=== PATIENT | male | born 1955 | race American Indian/Alaskan Native ===

== ENCOUNTER 2019-07-27 18:49 | Inpatient (IN) | payer OTHER ==
--- NOTE | 2019-07-27 19:28 | Emergency Department Report ---
Chief Complaint: Upper Respiratory Infection Stated Complaint: COUGHING BLOOD - HPI History of Present Illness: 63yo BM states that he has been coughing for a month with blood appearing at times for over a month. - Exam Vital Signs: Vital Signs 07/27/19 18:53 Temperature 97.5 F L Pulse Rate 133 H Respiratory 16 Rate Blood Pressure 152/104 O2 Sat by Pulse 89 Oximetry MSE screening note: Focused history and physical exam performed. Due to findings the following was ordered: ED Disposition for MSE Condition: Stable
[2019-07-27 19:47] LABS: Basophils % (Auto) 0.5 % (0.0-1.8); Eosinophils % (Auto) 0.1 % (0.0-4.3); Hematocrit 50.1 % (35.5-45.6); Hemoglobin 17.1 gm/dl (11.8-15.2); Lymphocytes # (Auto) 2.4 K/mm3 (1.2-5.4); Lymphocytes % (Auto) 28.9 % (13.4-35.0); Mean Corpuscular HGB Conc 34 % (32-34); Mean Corpuscular Volume 90 fl (84-94); Monocytes # (Auto) 0.8 K/mm3 (0.0-0.8); Monocytes % (Auto) 9.8 % (0.0-7.3); Platelet Count 225 K/mm3 (140-440); Red Blood Count 5.57 M/mm3 (3.65-5.03); Red Cell Distribution Width 13.3 % (13.2-15.2)
[2019-07-27 20:06] LABS: Alanine Aminotransferase 102 units/L (7-56); Albumin 4.5 g/dL (3.9-5); BUN/Creatinine Ratio 14; Blood Urea Nitrogen 14 mg/dL (9-20); Calcium 9.6 mg/dL (8.4-10.2); Hemolysis Index 9
--- NOTE | 2019-07-27 20:25 | XRay Report ---
CHEST 2 VIEWS, 07/27/2019 7:44 PM INDICATION: Cough. Hemoptysis. COMPARISON: None FINDINGS: Support devices: None Heart: The cardiac silhouette scratch that the heart is normal in size Lungs/pleura: There is a focal irregular density within the left upper lobe measuring approximately 6 x 2.5 cm. The right lung appears grossly clear. Diffuse mild bilateral interstitial thickening is n oted. Additional findings: Evaluation of bony structures demonstrates no definitive evidence of acute bony abnormality. IMPRESSION: 1. Irregular left upper lobe density as described. Recommend better characterization with CT of the c hest. Signer Name: Anum Donnelly MD Signed: 07/27/2019 8:21 PM Workstation Name: [id number]
--- NOTE | 2019-07-27 22:00 | Emergency Department Report ---
- General Chief Complaint: Upper Respiratory Infection Stated Complaint: COUGHING BLOOD Time Seen by Provider: 07/27/19 21:07 Source: patient Mode of arrival: Ambulatory Limitations: No Limitations - History of Present Illness Initial Comments: 63-year-old male with no significant past medical history presents to the hospital complaining of hemoptysis 1 month. Patient states initially he had a cough productive of green sputum but now it is clear with drops of blood for the past month. Decreased appetite reported. Patient denies fever, weight loss, or chills. Patient has a history of smoking but quit 4 years ago. He hasn't seen a doctor in the last 30-40 years. He denies chest pain, recent travel, history of PE/DVT. Pt denies drug use or daily etoh intake. - Related Data Allergies Allergy/AdvReac Type Severity Reaction Status Date / Time No Known Allergies Allergy Unverified 07/27/19 19:28 ED Review of Systems ROS: Stated complaint: COUGHING BLOOD Other details as noted in HPI Comment: All other systems reviewed and negative ED Past Medical Hx - Past Medical History Previous Medical History?: No - Surgical History Past Surgical History?: No - Social History Smoking Status: Former Smoker Substance Use Type: None ED Physical Exam - General Limitations: No Limitations - Other Other exam information: General: No acute distress Head: Atraumatic Eyes: normal appearance ENT: Moist mucous membranes Neck: Normal appearance, no midline tenderness Chest: Clear to auscultation bilaterally CV: Regular rate and rhythm Abdomen: Soft, normal bowel sounds, nontender, nondistended, no rebound or guarding Back: Normal inspection Extremity: Normal inspection infection, full range of motion, no calf tenderness or edema Neuro: Alert O x 3, no facial asymmetry, speech clear, no gross motor sensory deficit Psych: Appropriate behavior Skin: No rash ED Course Vital Signs 07/27/19 07/27/19 07/27/19 18:53 21:20 21:45 Temperature 97.5 F L 98.3 F Pulse Rate 133 H 103 H Respiratory 16 18 18 Rate Blood Pressure 152/104 Blood Pressure 155/114 [Left] O2 Sat by Pulse 89 89 93 Oximetry 07/27/19 22:20 Temperature Pulse Rate 106 H Respiratory 20 Rate Blood Pressure Blood Pressure 149/107 [Left] O2 Sat by Pulse 94 Oximetry ED Medical Decision Making - Lab Data Result diagrams: 07/27/19 19:32 07/27/19 19:32 Lab Results 07/27/19 07/27/19 Range/Units 19:32 19:32 WBC 8.2 (4.5-11.0) K/mm3 RBC 5.57 H (3.65-5.03) M/mm3 Hgb 17.1 H (11.8-15.2) gm/dl Hct 50.1 H (35.5-45.6) % MCV 90 (84-94) fl MCH 31 (28-32) pg MCHC 34 (32-34) % RDW 13.3 (13.2-15.2) % Plt Count 225 (140-440) K/mm3 Lymph % (Auto) 28.9 (13.4-35.0) % Harding % (Auto) 9.8 H (0.0-7.3) % Eos % (Auto) 0.1 (0.0-4.3) % Baso % (Auto) 0.5 (0.0-1.8) % Lymph # 2.4 (1.2-5.4) K/mm3 Harding # 0.8 (0.0-0.8) K/mm3 Eos # 0.0 (0.0-0.4) K/mm3 Baso # 0.0 (0.0-0.1) K/mm3 Seg Neutrophils % 60.7 (40.0-70.0) % Seg Neutrophils # 5.0 (1.8-7.7) K/mm3 Sodium 138 (137-145) mmol/L Potassium 4.5 (3.6-5.0) mmol/L Chloride 100.5 (98-107) mmol/L Carbon Dioxide 19 L (22-30) mmol/L Anion Gap 23 mmol/L BUN 14 (9-20) mg/dL Creatinine 1.0 (0.8-1.5) mg/dL Estimated GFR > 60 ml/min BUN/Creatinine Ratio 14 % Glucose 111 H (75-100) mg/dL Calcium 9.6 (8.4-10.2) mg/dL Total Bilirubin 0.50 (0.1-1.2) mg/dL AST 114 H (5-40) units/L ALT 102 H (7-56) units/L Alkaline Phosphatase 112 (35-129) units/L Total Protein 8.0 (6.3-8.2) g/dL Albumin 4.5 (3.9-5) g/dL Albumin/Globulin Ratio 1.3 % - EKG Data -: EKG Interpreted by Me EKG shows normal: sinus rhythm, ST-T waves (no stemi) Rate: tachycardia (115) - EKG Data When compared to previous EKG there are: previous EKG unavailable - Radiology Data Radiology results: report reviewed CHEST 2 VIEWS, 07/27/2019 7:44 PM INDICATION: Cough. Hemoptysis. COMPARISON: None FINDINGS: Support devices: None Heart: The cardiac silhouette scratch that the heart is normal in size Lungs/pleura: There is a focal irregular density within the left upper lobe measuring approximately 6 x 2.5 cm. The right lung appears grossly clear. Diffuse mild bilateral interstitial thickening is noted. Additional findings: Evaluation of bony structures demonstrates no definitive evidence of acute bony abnormality. IMPRESSION: 1. Irregular left upper lobe density as described. Recommend better c haracterization with CT of the chest. - Medical Decision Making CT comfirms infiltrate in the left upper lobe or right lower lobe. Although patient does not have any tuberculosis risk factors (known incarceration, homelessness, international travel, fever, weight loss, or night sweats) he will be placed in respiratory isolation until TB can't be ruled out given that he has hemoptysis with upper lobe infiltrate. Cultures and Rocephin and azithromycin ordered. Hospitalist informed for admission. Patient also noted to be hypertensive. - Differential Diagnosis pneumonia, TB, cancer, PE Critical Care Time: No Critical care attestation.: If time is entered above; I have spent that time in minutes in the direct care of this critically ill patient, excluding procedure time. ED Disposition Clinical Impression: Pneumonia, Hemoptysis, Emphysema lung, HTN (hypertension) Disposition: OP ADMIT IP TO THIS HOSP Is pt being admited?: Yes Condition: Stable Time of Disposition: 23:14 (Dr Armendariz/hosp)
--- NOTE | 2019-07-27 22:54 | Cat Scan Report ---
CTA CHEST WITH CONTRAST INDICATION / CLINICAL INFORMATION: MAIN: lung mass, hemoptysis; 100ML OF OMNI 350. TECHNIQUE: Axial CT images were obtained through the chest after injection of 100 MLO Omnipaque 350 IV contrast. 3 plane MIP and/or 3D reconstructions were produced. All CT scans at this location are performed usi ng CT dose reduction for ALARA by means of automated exposure control. COMPARISON: Chest radiograph dated 07/27/19 FINDINGS: PULMONARY ARTERIES: No pulmonary emboli. THORACIC AORTA: No significant abnormality. HEART: No significant abnormality. CORONARY ARTERIES: No significant calcification. MEDIASTINUM / CARISSA: No significant abnormality. PLEURA: No pleural effusion. No pneumothorax. LUNGS: Patchy parenchymal densities in the left upper lobe corresponding to the radiographic abnormal ity. Additional patchy parenchymal densities in the right lower lobe. Mild diffuse bronchiectasis. Up per lobe predominant paraseptal emphysema with prominent interstitial reticular markings in the lung bases. No discrete pulmonary mass or nodule. ADDITIONAL FINDINGS: None. UPPER ABDOMEN: No acute findings. SKELETAL STRUCTURES: No significant osseous abnormality. IMPRESSION: 1. No CT evidence for pulmonary embolism. 2. Patchy left upper lobe and right lower lobe parenchymal densities which may represent infiltrate s uch as pneumonia, possibly atypical. 3. Upper lobe predominant paraseptal emphysema. 4. Lower lobe predominant interstitial lung disease. Signer Name: Katya Munoz MD Signed: 07/27/2019 10:49 PM Workstation Name: [id number]
[2019-07-27] MEDS ORDERED: cefTRIAXone/NS 1 GM/50 ML 1 GM/50 ML BAG IV ONE (23:07)
[2019-07-27] MEDS ORDERED: AZITHROMYCIN 500 MG in SODIUM CHLORIDE 0.9% 250ML 250 ML IV ONE (23:07)
[2019-07-28] MEDS ORDERED: ACETAMINOPHEN 650 MG RECT SUPP PR PRN (00:30)
[2019-07-28] MEDS ORDERED: ONDANSETRON 4 MG/2 ML INJ IV PRN (00:30)
[2019-07-28] MEDS ORDERED: ALBUTEROL 2.5 MG/3 ML NEBU IH PRN (00:30)
[2019-07-28] MEDS ORDERED: MAGNESIUM HYDROXIDE (MOM) ORAL LIQD UDC PO PRN (00:30)
[2019-07-28] MEDS ORDERED: SODIUM CHLORIDE 0.9% 1000 ML 1,000 ML IV SCH (01:00)
[2019-07-28] MEDS ORDERED: ACETAMINOPHEN 325 MG TAB PO PRN (01:33)
[2019-07-28] MEDS: SODIUM CHLORIDE 0.9% 1000 ML 1,000 ML IV SCH ×3 (01:45→22:00)
--- NOTE | 2019-07-28 05:00 | History and Physical Report ---
History of Present Illness Date of examination: 07/27/19 Date of admission: 07/28/19 01:30 Chief complaint: Cough and shortness of breath for 1 week History of present illness: 63 year old -[place] male presenting to the emergency room today complaining of cough shortness of breath for about 4 weeks. He denies any fever, no chills, no night sweats and no weight loss. Patient denies any sick contacts. Cough is productive of some greenish sputum and subsequently had some yellowish sputum with occasional tinge of blood. Patient admits to many years of tobacco smoking however he quit tobacco use about 4 years ago. Past History Past Medical History: No medical history Past Surgical History: No surgical history Social history: smoking (patient quit tobacco use about 4 years ago after smoking less than half a pack TOBACCO for about 20 years) Family history: diabetes (mother has history of diabetes mellitus) Medications and Allergies Allergies Allergy/AdvReac Type Severity Reaction Status Date / Time No Known Allergies Allergy Verified 07/27/19 23:11 Home Medications Medication Instructions Recorded Confirmed Last Taken Type No Known Home Medications [No 07/28/19 07/28/19 Unknown History Reported Home Medications] Active Meds: Active Medications Acetaminophen (Tylenol) 650 mg PO ONCE PRN PRN Reason: Fever >101 Albuterol (Proventil) 2.5 mg IH Q3HRT PRN PRN Reason: Shortness Of Breath Sodium Chloride (Nacl 0.9% 1000 Ml) 1,000 mls @ 125 mls/hr IV DIRECT TERRELL Last Admin: 07/28/19 01:45 Dose: 125 mls/hr Documented by: Ceftriaxone Sodium (Rocephin/Ns 2 Gm/100 Ml) 2 gm in 100 mls @ 200 mls/hr IV Q24HR TERRELL; Protocol Azithromycin 500 mg/ Sodium (Chloride) 250 mls @ 250 mls/hr IV Q24HR TERRELL; P rotocol Magnesium Hydroxide (Milk Of Magnesia) 30 ml PO Q4H PRN PRN Reason: Constipation Ondansetron HCl (Zofran) 4 mg IV Q8H PRN PRN Reason: Nausea And Vomiting Sodium Chloride (Sodium Chloride Flush Syringe 10 Ml) 10 ml IV BID TERRELL Last Admin: 07/28/19 01:15 Dose: 10 ml Documented by: Sodium Chloride (Sodium Chloride Flush Syringe 10 Ml) 10 ml IV PRN PRN PRN Reason: LINE FLUSH Review of Systems Respiratory: cough with sputum (cough is productive of some yellowish sputum with occasional tinge of blood), hemoptysis, shortness of breath Exam - Constitutional Vitals: Temp Pulse Resp BP Pulse Ox 99.3 F 89 20 143/103 93 07/28/19 02:38 07/28/19 02:38 07/28/19 02:38 07/28/19 02:38 07/28/19 02:38 General appearance: Present: no acute distress - EENT Eyes: Present: PERRL, EOM intact - Neck Neck: Present: supple, normal ROM - Respiratory Respiratory: bilateral: diminished, rales - Cardiovascular Rhythm: regular Heart Sounds: Present: S1 & S2 Results - Labs CBC & Chem 7: 07/27/19 19:32 07/27/19 19:32 Labs: Abnormal lab results 07/27/19 07/27/19 Range/Units 19:32 19:32 RBC 5.57 H (3.65-5.03) M/mm3 Hgb 17.1 H (11.8-15.2) gm/dl Hct 50.1 H (35.5-45.6) % Titus % (Auto) 9.8 H (0.0-7.3) % Carbon Dioxide 19 L (22-30) mmol/L Glucose 111 H (75-100) mg/dL AST 114 H (5-40) units/L ALT 102 H (7-56) units/L Assessment and Plan - Patient Problems (1) Emphysema lung Current Visit: Yes Status: Acute Plan to address problem: Patient will be placed on nebulizer treatments as needed (2) HTN (hypertension) Current Visit: Yes Status: Acute Plan to address problem: Blood pressure will be closely monitored. He does not have any known history of hypertension (3) Hemoptysis Current Visit: Yes Status: Acute Plan to address problem: We will place a consult to infectious disease to evaluate patient in the a.m. We will also rule out pulmonary tuberculosis. (4) Pneumonia Current Visit: Yes Status: Acute Qualifiers: Lung location: lower lobe of lung Plan to address problem: He has been placed on empiric IV antibiotics. Will allow with the culture results. We will keep O2 saturation greater or equal to 92%
[2019-07-28 05:26] LABS: Basophils % (Auto) 0.4 % (0.0-1.8); Eosinophils % (Auto) 0.4 % (0.0-4.3); Hematocrit 44.1 % (35.5-45.6); Hemoglobin 14.8 gm/dl (11.8-15.2); Lymphocytes # (Auto) 2.1 K/mm3 (1.2-5.4); Lymphocytes % (Auto) 37.1 % (13.4-35.0); Mean Corpuscular HGB Conc 34 % (32-34); Mean Corpuscular Volume 90 fl (84-94); Monocytes # (Auto) 0.7 K/mm3 (0.0-0.8); Monocytes % (Auto) 11.8 % (0.0-7.3); Platelet Count 190 K/mm3 (140-440); Red Cell Distribution Width 13.4 % (13.2-15.2)
[2019-07-28 05:33] LABS: INR 1.11 (0.87-1.13)
[2019-07-28 05:34] LABS: Partial Thromboplastin Time 35.8 Sec. (24.2-36.6)
[2019-07-28 05:42] LABS: BUN/Creatinine Ratio 13; Blood Urea Nitrogen 12 mg/dL (9-20); Calcium 8.8 mg/dL (8.4-10.2); Hemolysis Index 5
[2019-07-28] MEDS: cefTRIAXone/NS 2 GM/100 ML 2 GM/100 ML BAG IV SCH (10:00)
[2019-07-28] MEDS: AZITHROMYCIN 500 MG in SODIUM CHLORIDE 0.9% 250ML 250 ML IV SCH (12:13)
--- NOTE | 2019-07-28 15:15 | Event Note ---
Date: 07/28/19 Full consult to follow. Patient has no risk factors for tuberculosis and no cavitary lesions in the lungs, only emphysematous blebs. Ok to remove from airborne. He is not coughing. Gwendolyn Carrera MD [facility] M: [phone] O: [phone] F: [phone]
--- NOTE | 2019-07-28 21:20 | Consultation ---
History of Present Illness - Reason for Consult Consult date: 07/28/19 - History of Present Illness 63 yo M PMHx tobacco abuse admitted to the hospital complaining of productive cough and SOB which began about a month prior to admission. He notes that it began not very severe, but progressed over time, however he avoided coming to the hospital. More recently, prior to coming in he had a couple episodes of hemoptysis which occurred after bouts of severe coughing, He otherwise denies fevers, sweats, chills. He has not travelled internationally ever, never been in the , incarcerated, or homeless. He has no sick contacts. No other concerns. Feels considerably better since coming to hospital. Imaging personally reviewed: CTA: Patchy consolidation, significant emphysematous changes in the upper lobes. Review of systems: Bold if positive; otherwise negative GENERAL: fever, chills, weight loss, fatigue, night sweats EYES: blurry vision, eye pain HENT: headache, hearing loss, sore throat, dysphagia, sinus pain CARDIO: chest pain, palpitations, orthopnea PULM: shortness of breath, wheezing, cough, sputum, hemoptysis GI: nausea, vomiting, diarrhea, abdominal pain, blood in stool : urinary frequency, urgency, dysuria, urethral discharge MSK: joint pain, back pain, swelling SKIN: rash, redness HEME: easy bruising, bleeding Past History Past Medical History: No medical history Past Surgical History: No surgical history Social history: smoking (patient quit tobacco use about 4 years ago after smoking less than half a pack TOBACCO for about 20 years) Family history: diabetes (mother has history of diabetes mellitus) Medications and Allergies Allergies Allergy/AdvReac Type Severity Reaction Status Date / Time No Known Allergies Allergy Verified 07/27/19 23:11 Home Medications Medication Instructions Recorded Confirmed Last Taken Type No Known Home Medications [No 07/28/19 07/28/19 Unknown History Reported Home Medications] Active Meds: Active Medications Acetaminophen (Tylenol) 650 mg PO ONCE PRN PRN Reason: Fever >101 Albuterol (Proventil) 2.5 mg IH Q3HRT PRN PRN Reason: Shortness Of Breath Sodium Chloride (Nacl 0.9% 1000 Ml) 1,000 mls @ 125 mls/hr IV DIRECT TERRELL Last Admin: 07/28/19 10:05 Dose: 125 mls/hr Documented by: Ceftriaxone Sodium (Rocephin/Ns 2 Gm/100 Ml) 2 gm in 100 mls @ 200 mls/hr IV Q24HR TERRELL; Protocol Last Admin: 07/28/19 10:00 Dose: 200 mls/hr Documented by: Azithromycin 500 mg/ Sodium (Chloride) 250 mls @ 250 mls/hr IV Q24HR TERRELL; Protocol Last Admin: 07/28/19 12:13 Dose: 250 mls/hr Documented by: Magnesium Hydroxide (Milk Of Magnesia) 30 ml PO Q4H PRN PRN Reason: Constipation Ondansetron HCl (Zofran) 4 mg IV Q8H PRN PRN Reason: Nausea And Vomiting Sodium Chloride (Sodium Chloride Flush Syringe 10 Ml) 10 ml IV BID [facility] Last Admin: 07/28/19 10:00 Dose: 10 ml Documented by: Sodium Chloride (Sodium Chloride Flush Syringe 10 Ml) 10 ml IV PRN PRN PRN Reason: LINE FLUSH Physical Examination - Physical Exam Narrative exam: General Normal appearance, well developed, no acute distress Eyes - PERRLA, EOM intact ENT - Moist mucous membranes, no lymphadenopathy Neck - No noticeable or palpable swelling, redness or rash around throat or on face Lymph Nodes - No lymphadenopathy Cardiovascular - RRR no m/r/g, no JVD, no carotid bruits Lungs - Clear to auscultation, no use of accessory muscles, no crackles or wheezes. Skin - No rashes, skin warm and dry, no erythematous areas Abdomen - Normal bowel sounds, abdomen soft and nontender Extremities - No edema, cyanosis or clubbing Musculoskeletal - 5/5 strength, normal range of motion, no swollen or erythematous joints. Neurological Alert and oriented x 3, CN 2-12 grossly intact. - Constitutional Vitals: Vital Signs Temp Pulse Resp BP Pulse Ox 98.4 F 88 18 159/101 94 07/28/19 16:47 07/28/19 16:47 07/28/19 16:47 07/28/19 16:47 07/28/19 16:47 Temperature -Last 24 Hours Temperature 98.4 F Temperature 98.5 F Temperature 98.4 F Temperature 99.3 F Temperature 98.3 F Results - Labs CBC & Chem 7: 07/28/19 04:36 07/28/19 04:36 Labs: Abnormal lab results 07/28/19 07/28/19 Range/Units 04:36 04:36 Lymph % (Auto) 37.1 H (13.4-35.0) % Mcdowell % (Auto) 11.8 H (0.0-7.3) % Carbon Dioxide 21 L (22-30) mmol/L Assessment and Plan Cultures Blood culture 07/26/2019 - no growth to date Assessment: 63 yo M PMHx tobacco abuse admitted with pneumonia 1. Pneumonia - Seen on CT, has had siginificant symptomatic improvement since starting on antibiotics. He has no significant history for TB risk factors (no travel etc.). There is no cavitary lesion seen on the CT. He denies night sweats, weight loss recently. His hemoptysis is most likely secondary to bronchial agitation from prolonged tussive episodes. Would continue the antibiotics, and he can be discharged on PO antibiotics. Recs: - continue ceftriaxone 2g q24h and azithromycin 500mg q24h while inpatient - ok for discharge from infectious disease perspective - would send home with cefdinir 300mg q12h to complete a 10 day course of antibiotics. Stop date 08/06 [facility] M: [phone] O: [phone] F: [phone]
[2019-07-29] MEDS ORDERED: hydrALAZINE 20 MG/1 ML INJ IV ONE (01:31)
[2019-07-29] MEDS: SODIUM CHLORIDE 0.9% 1000 ML 1,000 ML IV SCH (04:40)
[2019-07-29] MEDS ORDERED: hydrALAZINE 20 MG/1 ML INJ IV PRN (08:21)
[2019-07-29] MEDS: cefTRIAXone/NS 2 GM/100 ML 2 GM/100 ML BAG IV SCH (09:46)
--- NOTE | 2019-07-29 11:30 | Discharge Summary ---
Providers - Providers Date of Admission: 07/28/19 01:30 Attending physician: ARCHANA POTTER MD 07/28/19 00:30 Consult to Dietitian/Nutrition [CONS] Routine Physician Instructions: Reason For Exam: Reason for Consult: Diet education 07/28/19 07:19 Consult to Physician [CONS] Routine Comment: Consulting Provider: HELADIO AGUILAR Physician Instructions: Reason For Exam: pna, r/o tb Primary care physician: G[employer]EL[employer] APPRENTICE Hospitalization Condition: Stable Hospital course: 63-year-old man who presents to the hospital with productive cough. He was f ound to have community acquired pneumonia. He received antibiotics. He was seen by infectious disease who agreed with antibiotic plan. Patient improved clinically and was discharged home Diagnosis Sepsis Community-acquired pneumonia Disposition: DC- TO HOME OR SELFCARE Time spent for discharge: 33 mins Core Measure Documentation - Palliative Care Palliative Care/ Comfort Measures: Not Applicable - Core Measures Any of the following diagnoses?: none Exam - Constitutional Vitals: Temp Pulse Resp BP Pulse Ox 98.3 F 99 H 20 135/78 92 07/29/19 01:01 EST 07/29/19 09:52 07/29/19 09:52 07/29/19 09:52 07/29/19 09:52 General appearance: Present: no acute distress, well-nourished - EENT Eyes: Present: PERRL ENT: hearing intact, clear oral mucosa - Neck Neck: Present: supple, normal ROM - Respiratory Respiratory effort: normal Respiratory: bilateral: CTA - Cardiovascular Heart Sounds: Present: S1 & S2. Absent: rub, click - Extremities Extremities: pulses symmetrical, No edema Peripheral Pulses: within normal limits - Abdominal General gastrointestinal: Present: soft, non-tender, non-distended, normal bowel sounds Male genitourinary: Present: normal - Integumentary Integumentary: Present: clear, warm, dry - Musculoskeletal Musculoskeletal: gait normal, strength equal bilaterally - Psychiatric Psychiatric: appropriate mood/affect, intact judgment & insight - Neurologic Neurologic: CNII-XII intact, moves all extremities Plan Follow up with: PRIMARY CAREMD [Primary Care Provider] - 7 Days Prescriptions: Cefdinir 300 mg PO BID #14 capsule
[2019-07-29] MEDS: AZITHROMYCIN 500 MG in SODIUM CHLORIDE 0.9% 250ML 250 ML IV SCH (12:06)
[2019-07-29 13:56] VITALS: BP 106/75
== END 2019-07-29 16:12 | disposition home or self-care (01) | DRG 871 ==
LOC: ED 18:49 → 3A 07-28 01:30
PROVIDERS: ADMIT Internal Medicine Geriatric Medicine; ATTEND Internal Medicine
DX: A41.9 Sepsis, unspecified organism (principal); J18.9 Pneumonia, unspecified organism; R04.2 Hemoptysis; J43.9 Emphysema, unspecified; I10 Essential (primary) hypertension; Z87.891 Personal history of nicotine dependence; Z83.3 Family history of diabetes mellitus
CPT/HCPCS: 36415; 71046; 71275; 80048; 80053; 85025; 85610; 85730; 87040; 93005; 93010; 96361; 96365; 96367; 96375; G0378; J0360; J0456; J0696; J7030; J7050; Q9967